=== PATIENT | female | born 1930 | race Caucasian/White ===

== ENCOUNTER 2016-09-19 14:38 | Observation (INO) | payer MEDICARE, BC ==
[~2016-09-19] VITALS: Ht 162.6 cm; Wt 63.6 kg
[2016-09-19 15:15] LABS: BASOPHILS 0.3 % (0.0-2.0); EOSINOPHILS 2.7 % (0-7); HEMATOCRIT 38.3 % (36.0-48.0); HEMOGLOBIN 12.1 g/dL (12-16); IMMATURE GRANULOCYTES 0.1 % (0-5); LYMPHOCYTES 67.6 % (15-50); MCH 29.7 pg (26.0-34.0); MCHC 31.6 g/dL (31.0-37.0); MCV 93.9 fL (80.0-100.0); MONOCYTES 3.9 % (2-11); NEUTROPHILS 25.4 % (40-80); PLATELET COUNT 230 10x3/uL (130-400); RBC 4.08 10x6/uL (4.00-5.40); WBC 14.3 10x3/uL (4.8-10.8)
[2016-09-19 15:28] LABS: ALBUMIN 3.7 g/dL (3.4-5.0); ALKALINE PHOSPHATASE 60 U/L (46-116); ALT (SGPT) 19 U/L (10-68); CALC OSMOLALITY 282 mosm/kg (275-300); CARBON DIOXIDE 29.4 mmol/L (21.0-32.0); CHLORIDE - SERUM 103 mmol/L (98-107); CREATININE - SERUM 0.9 mg/dL (0.6-1.3); GLUCOSE 111 mg/dL (74-106); POTASSIUM - SERUM 4.3 mmol/L (3.5-5.1); PROTEIN - SERUM 6.7 g/dL (6.4-8.2); SODIUM 140 mmol/L (136-145); UREA NITROGEN 21 mg/dL (7-18); eGFR NON AFRICAN AMERICAN 63 mL/min (90-120)
[2016-09-19 15:38] LABS: CHOL - HDL RATIO 3.9 ratio (2.3-4.1); CHOLESTEROL, TOTAL 200 mg/dL (0-200); CKMB 1.1 U/L (0.0-3.6); CREATINE KINASE 92 UL (21-215); HDL CHOLESTEROL 51 mg/dL (32-96); LDL CHOLESTEROL 129 mg/dL (0-100); LDL-HDL RATIO 2.5 ratio (1.5-3.5); TRIGLYCERIDE 100 mg/dL (30-200); TROPONIN-I < 0.017 ng/mL (0.000-0.060)
--- NOTE | 2016-09-19 17:57 | NUR ---
REC'D PT FROM ER. A/O. WEARING O2. PT SITTING IN CHAIR AND STARTING TO EAT SUPPER. PT STATES CHEST PAIN IS IMPROVING. ORIENTED PT TO ROOM. CALL LIGHT WITHIN REACH. WILL CONT. TO MONITOR.
[2016-09-19] MEDS ORDERED: CALCIUM 500 + D1 TAB PO (17:58)
[2016-09-19 18:25] LABS: APPEARANCE CLEAR (CLEAR); BILIRUBIN NEGATIVE (NEGATIVE); COLOR YELLOW (YELLOW); GLUCOSE NEGATIVE (NEGATIVE); KETONE NEGATIVE (NEGATIVE); LEUKOCYTE ESTERASE NEGATIVE (NEGATIVE); NITRITE NEGATIVE (NEGATIVE); PROTEIN NEGATIVE (NEGATIVE); UROBILINOGEN NORMAL (NORMAL)
[2016-09-19 18:35] VITALS: BP 135/52
[2016-09-19 20:39] VITALS: BP 119/57
[2016-09-19 21:32] VITALS: Ht 162.6 cm; Wt 63.6 kg
[2016-09-20 00:47] VITALS: BP 111/62
[2016-09-20 04:56] VITALS: BP 114/57
[2016-09-20 08:26] VITALS: BP 156/58
--- NOTE | 2016-09-20 09:26 | NUR ---
TELEMETRY SR. UP IN CHAIR WITH CALL LIGHT IN REACH. WILL CONT. PLAN OF CARE.
[2016-09-20 12:10] VITALS: BP 136/63
--- NOTE | 2016-09-20 15:01 | NUR ---
IV AND TELEMETRY DCD. DC PLANS GIVEN. UNDERSTANDING VOICED. NOTIFIED OF DC.
--- NOTE | 2016-09-20 15:45 | NUR ---
ESCORTED TO CAR BY W/C.
== END 2016-09-20 15:46 | disposition home or self-care (01) ==
LOC: D.ER 14:38 → OBSVTIME 17:40 → D.M2 17:40
PROVIDERS: Emergency Medicine; ADMIT Internal Medicine Interventional Cardiology
DX: R07.89 Other chest pain (principal); M25.512 Pain in left shoulder; I10 Essential (primary) hypertension; I48.0 Paroxysmal atrial fibrillation; M19.90 Unspecified osteoarthritis, unspecified site; I08.1 Rheumatic disorders of both mitral and tricuspid valves

== ENCOUNTER 2016-12-17 11:53 | Emergency (ER) | payer MEDICARE, BC ==
[2016-09-19 21:32] VITALS: BMI 24.0
[~2016-12-17 11:53] MED LIST: CALCIUM 500 + D1 TAB PO
== END 2016-12-17 17:09 | disposition home or self-care (01) ==
LOC: D.ER 11:53
DX: S39.012A Strain of muscle, fascia and tendon of lower back, initial encounter (principal); W19.XXXA Unspecified fall, initial encounter; Y93.89 Activity, other specified; Y92.89 Other specified places as the place of occurrence of the external cause; I10 Essential (primary) hypertension

== ENCOUNTER 2016-12-26 23:18 | Emergency (ER) | payer MEDICARE, BC ==
[2016-09-19 21:32] VITALS: BMI 24.0
[2016-12-26 23:53] LABS: BASOPHILS 0.1 % (0-2); EOSINOPHILS 3.2 % (0-7); HEMATOCRIT 37.7 % (36.0-48.0); IMMATURE GRANULOCYTES 0.3 % (0-5); LYMPHOCYTES 63.5 % (15-50); MCH 29.5 pg (26.0-34.0); MCHC 31.8 g/dL (31.0-37.0); MCV 92.6 fL (80.0-100.0); MEAN PLATELET VOLUME 9.2 fL (7.4-10.4); MONOCYTES 3.7 % (2-11); NEUTROPHILS 29.2 % (40-80); RBC 4.07 10x6/uL (4.00-5.40); RDW 14.3 % (11.5-14.5); WBC 14.2 10x3/uL (4.8-10.8)
[2016-12-26 23:58] LABS: APPEARANCE CLEAR (CLEAR); COLOR STRAW (YELLOW)
[2016-12-26 23:59] LABS: BILIRUBIN NEGATIVE (NEGATIVE); GLUCOSE NEGATIVE (NEGATIVE); KETONE NEGATIVE (NEGATIVE); LEUKOCYTE ESTERASE NEGATIVE (NEGATIVE); NITRITE NEGATIVE (NEGATIVE); PH 7.5 (5.0-6.0); PLATELET COUNT 291 10x3/uL (130-400); PROTEIN NEGATIVE (NEGATIVE); SPECIFIC GRAVITY 1.005 (1.005-1.020); UROBILINOGEN NORMAL (NORMAL)
[2016-12-27 00:09] LABS: ALBUMIN 3.8 g/dL (3.4-5.0); ANION GAP 8.7 mmol/L (8-16); BILIRUBIN - TOTAL 0.5 mg/dL (0.2-1.3); CALCIUM 8.8 mg/dL (8.5-10.1); CARBON DIOXIDE 31.6 mmol/L (21.0-32.0); CREATININE - SERUM 1.1 mg/dL (0.6-1.3); POTASSIUM - SERUM 4.3 mmol/L (3.5-5.1); PROTEIN - SERUM 7.1 g/dL (6.4-8.2)
== END 2016-12-27 02:28 | disposition home or self-care (01) ==
LOC: D.ER 23:18
PROVIDERS: Emergency Medicine
DX: M19.91 Primary osteoarthritis, unspecified site (principal); M54.9 Dorsalgia, unspecified; I10 Essential (primary) hypertension

== ENCOUNTER → 2017-01-01 09:30 | Outpatient (CLI) | payer MEDICARE, BC ==
[2016-09-19 21:32] VITALS: BMI 24.0
== END | disposition home or self-care (01) ==
LOC: D.MRI 12-27 15:30
DX: M54.5 Low back pain (principal)